=== PATIENT | male | born 1990 | race Caucasian/White ===

== ENCOUNTER 2023-08-03 08:42 | Emergency (ER) | payer MEDICAID, SELFPAY ==
[2023-08-03 09:16] LABS: Basophils % 0.3 %; Eosinophils % 0.5 %; Lymphocytes # 2.1 10^3/uL (0.8-4.8); Lymphocytes % 28.2 %; Mean Corpuscular HGB Conc 34.4 g/dL (30-55); Mean Corpuscular Hemoglobin 31.8 pg (27-33); Mean Corpuscular Volume 92.5 fl (82-101); Mean Platelet Volume 9.7 fL (7.4-10.4); Monocytes # 0.4 10^3/uL (0.2-0.9); Monocytes % 5.4 %; Neutrophils # 4.96 10^3/uL (1.8-7.7); Neutrophils % 65.3 %; Nucleated Red Blood Cells % 0 %; Platelet Count 290 10^3/cmm (157-399); Red Blood Count 4.65 10^6/uL (3.85-5.65); Red Cell Distribution Width 12.8 % (12.1-15.1); White Blood Count 7.59 10^3/uL (3.29-11.43)
[2023-08-03 09:18] VITALS: BP 127/72; PULSE 62; RESP 18; TEMP 36.7; O2SAT 99
[2023-08-03 09:29] LABS: Alanine Aminotransferase 13 U/L (0-41); Albumin Level 4.9 g/dL (3.5-5.2); Alkaline Phosphatase 63 U/L (40-130); Anion Gap 14.1 (5-19); Aspartate Amino Transferase 16 U/L (0-40); Blood Urea Nitrogen 14 mg/dL (6-20); Calcium 9.7 mg/dL (8.5-10.5); Carbon Dioxide 25 mmol/L (22-29); Chloride 103 mmol/L (98-107); Globulin 2.6 g/dL (1.3-4.6); Glucose 105 mg/dL (65-115); Osmolality Calculated 287 mOsm/kg (285-295); Potassium 4.1 mmol/L (3.5-5.1); Sodium 138 mmol/L (136-145); Total Bilirubin 0.5 mg/dL (0.15-1.2); Total Protein 7.5 g/dL (6.6-8.7)
--- NOTE | 2023-08-03 09:32 | CT_ITS ---
WS: [id number] CT ABDOMEN PELVIS TECHNIQUE: Contrast-enhanced CT of the abdomen and pelvis with coronal and sagittal reformatted image s. CLINICAL INFORMATION: bilateral flank pains COMPARISON: None. DLP: 334.[address] scans at [facility] use at least one of these dose optimization techniques: automated e xposure control; mA and/or kV adjustment per patient size (includes targeted exams where dose is matc hed to clinical indication); or iterative reconstruction. FINDINGS: Lung bases are well aerated. Normal liver. Normal portal vein and splenic vein. Normal spleen. Normal GE junction. Adrenal glands are normal. Normal renal parenchymal enhancement. No hydronephrosis. Pos toperative changes RIGHT kidney. Normal pancreas. Normal caliber abdominal aorta. Normal gallbladder. Enhancing prostate somewhat prominent for patient this age. Correlation PSA. Prostate measures 4.4 cm with calcification. Few sigmoid diverticuli. No evidence of acute diverticulitis. Constipation in th e RIGHT colon and transverse colon. Appendix appears normal. IMPRESSION: 1. No hydronephrosis in either kidney. Prominent LEFT greater than RIGHT extrarenal pelvis although the ureters are decompressed. No visualized obstructing calculi. 2. Prior postoperative changes RIGHT partial nephrectomy. 3. Enhancing prominent prostate for patient this age measuring 4.4 cm. Recommend correlation PSA. 4. A few sigmoid diverticuli. 5. Mild constipation in the RIGHT colon and transverse colon. Notified JUANCHO Hughes at 08/03/2023 10:44 AM.
--- NOTE | 2023-08-03 09:32 | ED_ITS ---
HPI - Back Pain/Injury 2 General: Chief Complaint: Back Pain/Injury Stated Complaint: Kidney pain, post cancer Time Seen by Provider: 08/03/23 08:55 Source: patient Mode of arrival: ambulatory Limitations: no limitations History of Present Illness: Patient is a 33-year-old male here for complaints of bilateral flank pains. Patient states approximately a year ago he had a partial right nephrectomy for renal cell carcinoma. Patient states since the surgery he has had intermittent flank pains but always felt like they were controllable and seemed to ease as long as he stayed hydrated and drink plenty of water. He states pains have progressively worsened over the past several months and this morning he woke up with unbearable pain. Patient admittedly has not had much follow-up following the surgery as he seemed to be overall displeased with the care he received. He does tell me at some point he had an ultrasound of his testicles which showed concern for malignant lesions but these have never been followed up with her biopsied. He does not complain of testicular pain currently. He is requesting urology follow-up as he is recently moved to the area. Patient states he is having difficulty with urination but that this is chronic and seems to come and go. MD elicited complaint: back pain Onset (ago): month(s) Timing: constant and progressively worsening Severity: severe Similar Symptoms Previously: Yes Location: left flank and right flank Radiation: none Relieving factors: other (usually drinking plenty of water) Associated symptoms: Reports nausea; Deny abdominal pain, chills, dysuria, fatigue, fever(s), hematuria, urinary urgency or vomiting Work related injury: No Review of Systems 2 Const: Denies: fever(s), chills, body aches, fatigue or malaise Card: Denies: chest pain Resp: Denies: dyspnea GI: Reports: nausea; Denies: abdominal pain, vomiting or diarrhea : Reports: flank pain, difficulty urinating and urinary hesitancy; Denies: dysuria, urinary frequency, urinary urgency, urinary dribbling or hematuria Musc: Reports: back pain; Denies: neck pain, extremity pain, extremity swelling, joint pain or joint swelling Skin/Breast: Denies: rash Neuro: Denies: headache(s), numbness in extremities, weakness in extremities, sensory changes or dizziness Physical Exam 2 Const: COMMON NORMALS: no acute distress, average body habitus, patient oriented x3, no limitations, healthy appearing, alert and well nourished G ENERAL APPEARANCE: cooperative ORIENTATION/CONSCIOUSNESS: Yes awake, Yes oriented to person, Yes oriented to place and Yes oriented to time HENMT: COMMON NORMALS: normocephalic and atraumatic HEAD & SCALP: normal to inspection, normocephalic and atraumatic Neck/C-Spine: COMMON NORMALS: full ROM, no lymphadenopathy, supple and no meningeal signs Chest: COMMONS NORMALS: normal inspection of the chest Resp: COMMON NORMALS: normal respiratory effort and clear to auscultation bilaterally AUSCULTATION: clear to auscultation bilaterally Cardio: COMMON NORMALS: regular rate and regular rhythm RATE: regular rate RHYTHM: regular rhythm GI: COMMON NORMALS: Normal to inspection, nondistended, normoactive bowel sounds present, Soft to palpation, non-tender, No hepatosplenomegaly present and no masses PALPATION: Yes Soft to palpation, No Tenderness to palpation present (GI), No Guarding due to palpation present (GI), No Rigid due to palpation and Yes No hepatosplenomegaly present : BLADDER/KIDNEY EXAM: Yes CVA tenderness bilateral Back/Pelvis: COMMON NORMALS: thoracic and lumbar spine normal to inspection GENERAL BACK: Yes CVA tenderness Extremity: GENERAL: Yes normal exam except as noted Neuro: ZONIA COMA SCALE: document GCS findings Zonia coma scale eye opening: Spontaneous [place] coma scale verbal response: Orientated [place] coma scale motor response: Obey commands Zonia coma scale total score: 15 COMMON NORMALS: patient oriented x3 SENSORIUM/ORIENTATION: Yes alert, Yes oriented to person, Yes oriented to place and Yes oriented to time MENINGEAL SIGNS: Y es no meningeal signs Skin: COMMON NORMALS: no rashes or lesions noted GENERAL SKIN EXAM: no rashes or lesions noted Course 2 Vital Signs: Vital signs: Vital Signs Temperature 98.1 F 08/03/23 09:18 Pulse Rate 64 08/03/23 10:55 Respiratory Rate 18 08/03/23 09:18 Blood Pressure 105/73 08/03/23 10:55 Pulse Oximetry 99 08/03/23 10:55 Oxygen Delivery Me thod Room Air 08/03/23 10:55 MDM - Back Pain/Injury Medical Decision Making Patient is a 33-year-old male who presents to ED today with complaint of bilateral flank pain. The pain, he states, has been present since his right partial nephrectomy although it does seem to be worsening. He states partial nephrectomy was for renal cell carcinoma. We do not have these records unfortunately. He was told at some point on a testicular ultrasound that he had nodules concerning for malignancy. He states he never followed up with these nor had them biopsied. He has no testicular complaints today. Patient's blood work is perfect. His UA is completely clear. CT scan does not show hydronephrosis in either kidney. No visualized calculi. It did comment on an enhanced prominent prostate especially given his age. Patient is not having any bladder outlet obstruction symptoms. He has no complaints consistent with prostatitis. Ultimately this patient needs urology follow-up given his history of renal cancer, enlarged prostate, and reported abnormal testicular ultrasound findings. There is nothing further that needs to be done from an emergency standpoint. Return to ED precautions given. Labs 08/03/23 09:07 08/03/23 09:07 Laboratory Results WBC 7.59 10^3/uL (3.29-11.43) 08/03/23 09:07 RBC 4.65 10^6/uL (3.85-5.65) 08/03/23 09:07 Hgb 14.80 g/dL (11.27-16.99) 08/03/23 09:07 Hct 43.0 % (37-53) 08/03/23 09:07 MCV 92.5 fl (82-101) 08/03/23 09:07 MCH 31.8 pg (27-33) 08/03/23 09:07 MCHC 34.4 g/dL (30-55) 08/03/23 09:07 RDW 12.8 % (12.1-15.1) 08/03/23 09:07 Plt Count 290 10^3/cmm (157-399) 08/03/23 09:07 MPV 9.7 fL (7.4-10.4) 08/03/23 09:07 Neut % (Auto) 65.3 % 08/03/23 09:07 Lymph % (Auto) 28.2 % 08/03/23 09:07 Barron % (Auto) 5.4 % 08/03/23 09:07 Eos % (Auto) 0.5 % 08/03/23 09:07 Baso % (Auto) 0.3 % 08/03/23 09:07 Neut # (Auto) 4.96 10^3/uL (1.8-7.7) 08/03/23 09:07 Lymph # (Auto) 2.1 10^3/uL (0.8-4.8) 08/03/23 09:07 Barron # (Auto) 0.4 10^3/uL (0.2-0.9) 08/03/23 09:07 Eos # (Auto) 0.0 10^3/uL (0.0-0.8) 08/03/23 09:07 Baso # (Auto) 0.0 10^3/uL (0.0-0.1) 08/03/23 09:07 Nucleated RBC % (auto) 0 % 08/03/23 09:07 Nucleated RBCs # 0.0 /100WBC 08/03/23 09:07 Sodium 138 mmol/L (136-145) 08/03/23 09:07 Potassium 4.1 mmol/L (3.5-5.1) 08/03/23 09:07 Chloride 103 mmol/L (98-107) 08/03/23 09:07 Carbon Dioxide 25 mmol/L (22-29) 08/03/23 09:07 Anion Gap 14.1 (5-19) 08/03/23 09:07 BUN 14 mg/dL (6-20) 08/03/23 09:07 Creatinine 0.8 mg/dL (0.7-1.2) 08/03/23 09:07 GFR Calculation 110.0 mL/min (90-130) 08/03/23 09:07 Glucose 105 mg/dL (65-115) 08/03/23 09:07 Calculated Osmolality 287 mOsm/kg (285-295) 08/03/23 09:07 Calcium 9.7 mg/dL (8.5-10.5) 08/03/23 09:07 Total Bilirubin 0.5 mg/dL (0.15-1.2) 08/03/23 09:07 AST 16 U/L (0-40) 08/03/23 09:07 ALT 13 U/L (0-41) 08/03/23 09:07 Alkaline Phosphatase 63 U/L (40-130) 08/03/23 09:07 Total Protein 7.5 g/dL (6.6-8.7) 08/03/23 09:07 Albumin 4.9 g/dL (3.5-5.2) 08/03/23 09:07 Globulin 2.6 g/dL (1.3-4.6) 08/03/23 09:07 Urine Color Yellow (Yellow) 08/03/23 10:08 Urine Appearance Clear (CLEAR) 08/03/23 10:08 Urine pH 5 (5-7) 08/03/23 10:08 Ur Specific Hale 1.015 (1.005-1.030) 08/03/23 10:08 Urine Protein Neg (Negative) 08/03/23 10:08 Urine Glucose (UA) Norm (Normal) 08/03/23 10:08 Urine Ketones Negative (Negative) 08/03/23 10:08 Urine Blood Neg (Negative) 08/03/23 10:08 Urine Nitrate Negative (Negative) 08/03/23 10:08 Urine Bilirubin Neg (Negative) 08/03/23 10:08 Urine Urobilinogen Neg mg/dL (Negative) 08/03/23 10:08 Ur Leukocyte Esterase Negative (Negative) 08/03/23 10:08 All radiology interpretation(s) finalized by discharge Discharge Plan Discharge Patient Disposition: Home Clinical Impression: Bilateral flank pain Condition: Stable Prescriptions: New acetaminophen-codeine 300-30 mg tablet 1 tab PO Q6H PRN (Reason: pain) Qty: 14 0RF Discharge Orders: Discharge ED (Routine); Ordered 08/03/23 Ordered By: Eugenie Rm Activity Restrictions/Additional Instructions: As we discussed I have placed a case management referral to get you set up with a urologist. I would like you to start taking [id number] analgesics such as Tylenol or Ibuprofen to see if this helps alleviate your pain. You can take the prescription pain medication for severe pain as needed. You need to return to the emergency department for worsening or uncontrollable pain, fevers, inability to urinate, or any other concerns you may have. 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
[2023-08-03 09:40] VITALS: BP 111/76; PULSE 64; O2SAT 98
[2023-08-03] MEDS: iohexol 350 mg/mL 500 mL Btl (per mL) IV (10:02)
[2023-08-03 10:19] LABS: Add Urine Microscopic? NO; Charge for UA Resulting for Rev
[2023-08-03 10:42] LABS: Bilirubin Urine Neg (Negative); Blood Urine Neg (Negative); Glucose Urine UA Norm (Normal); Ketones Urine Negative (Negative); Leukocyte Esterase Urine Negative (Negative); Nitrate Urine Negative (Negative); Protein Urine Neg (Negative); Specific Gravity, Urine 1.015 (1.005-1.030); Urine Appearance Clear (CLEAR); Urine Color Yellow (Yellow); Urobilinogen Urine Neg (Negative); pH Urine 5 (5-7)
[2023-08-03 10:55] VITALS: BP 105/73; PULSE 64; O2SAT 99
[2023-08-03] MEDS: ketorolac 30 mg/mL INJ IVP (11:36)
[2023-08-03 11:37] VITALS: BP 115/67; PULSE 56; O2SAT 99
[2023-08-03 12:08] VITALS: BP 99/70; PULSE 62; O2SAT 100
--- NOTE | 2023-08-03 12:15 | DCPLANNER ---
Sent referral to [facility] urology [facility] per patients request -
== END 2023-08-03 12:09 | disposition home or self-care (01) ==
PROVIDERS: Emergency Provider Physician Assistant
DX: R10.9 Unspecified abdominal pain (principal); Z90.5 Acquired absence of kidney; Z85.528 Personal history of other malignant neoplasm of kidney
CPT/HCPCS: 36415; 74177; 80053; 81003; 85025; 96374; 99285; J1885; Q9967

== ENCOUNTER 2023-11-18 10:42 | Emergency (ER) | payer OTHER, SELFPAY ==
[2023-11-18] VITALS (8 sets, daily range): BP systolic 102–113; BP diastolic 48–77; PULSE 51–71; RESP 16–18; TEMP 36.4; O2SAT 94–100; BMI 20.7
--- NOTE | 2023-11-18 10:46 | XRR_ITS ---
PROCEDURE INFORMATION: Exam: XR Chest Exam date and time: 11/18/2023 10:50 AM Age: 33 years old Clinical indication: Angina pectoris and chest pressure; Patient HX: Chest pains since 1300 07, radiates mostly to left side and causes pressure feeling, difficulty breathing. HX of renal cancer; Additional info: Cp TECHNIQUE: Imaging protocol: Radiologic exam of the chest. Views: 1 view. COMPARISON: CT abdomen pelvis w con* [id number] 08/03/2023 9:58 AM FINDINGS: Lungs: Unremarkable. No consolidation. Pleural spaces: Unremarkable. No pleural effusion. No pneumothorax. Heart/Mediastinum: Unremarkable. No cardiomegaly. Bones/joints: Unremarkable. XR/XR chest 1V portable [id number] IMPRESSION: No acute findings.
--- NOTE | 2023-11-18 10:46 | ECG_ITS ---
[facility] Test Date: 2023-11-18 Pat Name: Jamar Beth Department: Room: Gender: Male Speech Lang Path Therapist: : 1990 Requested By: Tristen Nowak Order Number: [id number] Moris MD: Jerrell Ozuna M.D. Measurements Intervals [place] Rate: 65 P: 78 IL: 169 QRS: 80 QRSD: 90 T: 64 QT: 370 QTc: 387 Interpretive Statements SINUS RHYTHM POSSIBLE LEFT ATRIAL ENLARGEMENT [-0.1mV P-WAVE IN V1/V2] POSSIBLE RIGHT VENTRICULAR CONDUCTION DELAY [RSR (QR) IN V1/V2] EARLY REPOLARIZATION [ST ELEVATION WITH NORMALLY INFLECTED T-WAVE] MODERATE ST DEPRESSION [0.05+ mV ST DEPRESSION] INTERPRETATION BASED ON A DEFAULT AGE OF 40 YEARS No previous ECG available for comparison Electronically Signed On 11-18-2023 17:13:44 CDT by Jerrell Ozuna M.D. [email or web address] ([employer])/store/[id number]
[2023-11-18 11:29] LABS: Basophils % 0.3 %; Eosinophils # 0.1 10^3/uL (0.0-0.8); Eosinophils % 0.6 %; Hematocrit 41.4 % (37-53); Lymphocytes # 2.2 10^3/uL (0.8-4.8); Lymphocytes % 21.6 %; Mean Corpuscular HGB Conc 34.5 g/dL (30-55); Mean Corpuscular Hemoglobin 32.5 pg (27-33); Mean Corpuscular Volume 94.1 fl (82-101); Mean Platelet Volume 9.6 fL (7.4-10.4); Monocytes # 0.6 10^3/uL (0.2-0.9); Monocytes % 6.3 %; Neutrophils # 7.11 10^3/uL (1.8-7.7); Nucleated Red Blood Cells % 0 %; Platelet Count 306 10^3/cmm (157-399); White Blood Count 10.01 10^3/uL (3.29-11.43)
[2023-11-18 11:43] LABS: D Dimer 0.41 ug/mLFEU (0-0.59)
[2023-11-18 11:44] LABS: Alanine Aminotransferase 15 U/L (0-41); Albumin Level 4.9 g/dL (3.5-5.2); Alkaline Phosphatase 76 U/L (40-130); Anion Gap 18.5 (5-19); Aspartate Amino Transferase 18 U/L (0-40); Blood Urea Nitrogen 25 mg/dL (6-20); Calcium 10.2 mg/dL (8.5-10.5); Carbon Dioxide 23 mmol/L (22-29); Chloride 104 mmol/L (98-107); Creatinine Clr Calc Pharmacy 123.6324; Globulin 2.3 g/dL (1.3-4.6); Glucose 99 mg/dL (65-115); Lipase 27 U/L (13-60); Osmolality Calculated 296 mOsm/kg (285-295); Potassium 4.5 mmol/L (3.5-5.1); Sodium 141 mmol/L (136-145); Total Bilirubin 0.4 mg/dL (0.15-1.2); Total Protein 7.2 g/dL (6.6-8.7)
[2023-11-18 11:47] LABS: Troponin(5th) Baseline < 6 ng/L (0-15)
[2023-11-18 13:03] LABS: Adenovirus Not Detected (NOT DETECT); Chlamydia Pneumoniae Not Detected (NOT DETECT); Coronavirus 229E,HKU1,NL63,OC4 Not Detected (NOT DETECT); Human Metapneumovirus Not Detected (NOT DETECT); Human Rhinovirus/Enterovirus Not Detected (NOT DETECT); Influenza A Not Detected (NOT DETECT); Influenza A H1 Not Detected (NOT DETECT); Influenza A H1-2009 Not Detected (NOT DETECT); Influenza A H3 Not Detected (NOT DETECT); Influenza B Not Detected (NOT DETECT); Mycoplasma Pneumoniae Not Detected (NOT DETECT); Parainfluenza Virus Type 1 Not Detected (NOT DETECT); Parainfluenza Virus Type 2 Not Detected (NOT DETECT); Parainfluenza Virus Type 3 Not Detected (NOT DETECT); Parainfluenza Virus Type 4 Not Detected (NOT DETECT); Respiratory Syncytial Virus A Not Detected (NOT DETECT); Respiratory Syncytial Virus B Not Detected (NOT DETECT); SARS-COV-2 Not Detected (NOT DETECT)
--- NOTE | 2023-11-18 13:12 | ECG_ITS ---
[facility] Test Date: 2023-11-18 Pat Name: Jamar Beth Department: Room: Gender: Male Client Success Specialist: : 1990 Requested By: Tristen Nowak Order Number: [id number] Moris MD: Jerrell Ozuna M.D. Measurements Intervals [place] Rate: 51 P: 83 VA: 197 QRS: 94 QRSD: 94 T: 70 QT: 418 QTc: 386 Interpretive Statements SINUS BRADYCARDIA BORDERLINE RIGHT AXIS DEVIATION [QRS AXIS > 90] POSSIBLE RIGHT VENTRICULAR CONDUCTION DELAY [RSR (QR) IN V1/V2] EARLY REPOLARIZATION [ST ELEVATION WITH NORMALLY INFLECTED T-WAVE] TALL T-WAVES Compared to ECG 11/18/2023 10:45:06 Sinus rhythm no longer present ST (T wave) deviation still present Electronically Signed On 11-18-2023 17:16:22 CDT by Jerrell Ozuna M.D. [email or web address]/store/OM/[id number]
[2023-11-18 13:43] LABS: Troponin 5 2HR 6.27 ng/L (0-15); Troponin 5 2HR Delta 0.27001 ABS# (0-10)
--- NOTE | 2023-11-18 13:47 | W.ED.SOB ---
HPI - SOB/Dyspnea General: Chief Complaint: Shortness of Breath/Dyspnea Stated Complaint: chest pain, short of breath Time Seen by Provider: 11/18/23 12:23 History of Present Illness: HPI Narrative: 33-year-old male presents emergency room planing of chest comfort and shortness of breath. He had a close contact who recently tested positive for COVID and was admitted to the hospital he had some loose stool slightly productive cough patient is a regular smoker no known history of asthma. He has not hypoxic time presentation he has albuterol has not been using regularly. No history of coronary artery disease no history of DVT or PE no history of any arrhythmias. Associated symptoms: Reports chest congestion and fever(s); Deny abdominal pain or chest pain Review of Systems Const: Reports: fever(s), chills, fatigue and malaise Card: Denies: chest pain Resp: Reports: dyspnea, productive cough, wheezing and chest congestion GI: Denies: abdominal pain : Denies: dysuria, urinary frequency or urinary urgency Musc: Denies: neck pain or back pain Skin/Breast: Denies: rash Physical Exam Const: GENERAL APPEARANCE: cooperative and comfortable ORIENTATION/CONSCIOUSNESS: Yes awake, Yes oriented to person, Yes oriented to place and Yes oriented to time HENMT: COMMON NORMALS: normocephalic, atraumatic and hearing grossly normal bilaterally HEAD & SCALP: normocephalic and atraumatic Resp: COMMON NORMALS: normal respiratory effort, No retractions and No use of accessory muscles AUSCULTATION: wheezes Cardio: COMMON NORMALS: regular rate, regular rhythm and No murmurs present (Cardio) RATE: regular rate RHYTHM: regular rhythm GI: COMMON NORMALS: Soft to palpation and No hepatosplenomegaly present AUSCULTATION: Yes normoactive bowel sounds PALPATION: Yes Soft to palpation, No Tenderness to palpation present (GI), No Guarding due to palpation present (GI) and Yes No hepatosplenomegaly present Extremity: COMMON NORMALS: normal to inspection, capillary refill normal, no clubbing, cyanosis or edema, no calf tenderness and no pedal edema Neuro: SENSORIUM/ORIENTATION: Yes oriented to person, Yes oriented to place and Yes oriented to time Skin: COMMON NORMALS: no rashes or lesions noted GENERAL SKIN EXAM: no rashes or lesions noted Course Vital Signs: Vital signs: Vital Signs Temperature 97.6 F 11/18/23 10:51 Pulse Rate 68 11/18/23 14:05 Respiratory Rate 16 11/18/23 13:58 Blood Pressure 113/56 11/18/23 14:05 Pulse Oximetry 100 11/18/23 14:05 Oxygen Delivery Me thod Room Air 11/18/23 13:58 MDM - SOB/Dyspnea Medical Decision Making Respiratory panel negative chest x-ray unremarkable did improve with steroids and nebulizers discharged home on albuterol to use regularly steroid taper doxycycline 100 twice daily for 10 days encourage smoking cessation follow-up with primary care if not improving Medical Records I reviewed the patient's medical records. Lab Data I reviewed the patient's lab results. 11/18/23 11:11 11/18/23 11:11 Labs/Radiology: Radiology Impressions Chest X-Ray 11/18/23 10:46 IMPRESSION: No acute findings. Laboratory Results WBC 10.01 10^3/uL (3.29-11.43) 11/18/23 11:11 RBC 4.40 10^6/uL (3.85-5.65) 11/18/23 11:11 Hgb 14.30 g/dL (11.27-16.99) 11/18/23 11:11 Hct 41.4 % (37-53) 11/18/23 11:11 MCV 94.1 fl (82-101) 11/18/23 11:11 MCH 32.5 pg (27-33) 11/18/23 11:11 MCHC 34.5 g/dL (30-55) 11/18/23 11:11 RDW 13.0 % (12.1-15.1) 11/18/23 11:11 Plt Count 306 10^3/cmm (157-399) 11/18/23 11:11 MPV 9.6 fL (7.4-10.4) 11/18/23 11:11 Neut % (Auto) 71.0 % 11/18/23 11:11 Lymph % (Auto) 21.6 % 11/18/23 11:11 Cowley % (Auto) 6.3 % 11/18/23 11:11 Eos % (Auto) 0.6 % 11/18/23 11:11 Baso % (Auto) 0.3 % 11/18/23 11:11 Neut # (Auto) 7.11 10^3/uL (1.8-7.7) 11/18/23 11:11 Lymph # (Auto) 2.2 10^3/uL (0.8-4.8) 11/18/23 11:11 Cowley # (Auto) 0.6 10^3/uL (0.2-0.9) 11/18/23 11:11 Eos # (Auto) 0.1 10^3/uL (0.0-0.8) 11/18/23 11:11 Baso # (Auto) 0.0 10^3/uL (0.0-0.1) 11/18/23 11:11 Nucleated RBC % (auto) 0 % 11/18/23 11:11 Nucleated RBCs # 0.0 /100WBC 11/18/23 11:11 D-Dimer 0.41 ug/mLFEU (0-0.59) 11/18/23 11:11 Sodium 141 mmol/L (136-145) 11/18/23 11:11 Potassium 4.5 mmol/L (3.5-5.1) 11/18/23 11:11 Chloride 104 mmol/L (98-107) 11/18/23 11:11 Carbon Dioxide 23 mmol/L (22-29) 11/18/23 11:11 Anion Gap 18.5 (5-19) 11/18/23 11:11 BUN 25 mg/dL (6-20) H 11/18/23 11:11 Creatinine 0.8 mg/dL (0.7-1.2) 11/18/23 11:11 GFR Calculation 110.0 mL/min (90-130) 11/18/23 11:11 Glucose 99 mg/dL (65-115) 11/18/23 11:11 Calculated Osmolality 296 mOsm/kg (285-295) H 11/18/23 11:11 Calcium 10.2 mg/dL (8.5-10.5) 11/18/23 11:11 Total Bilirubin 0.4 mg/dL (0.15-1.2) 11/18/23 11:11 AST 18 U/L (0-40) 11/18/23 11:11 ALT 15 U/L (0-41) 11/18/23 11:11 Alkaline Phosphatase 76 U/L (40-130) 11/18/23 11:11 Troponin T Baseline < 6 ng/L (0-15) 11/18/23 11:11 Troponin T 120 Minute 6.27 ng/L (0-15) 11/18/23 13:18 Delta Troponin T 0.25719 ABS# (0-10) 11/18/23 13:18 Total Protein 7.2 g/dL (6.6-8.7) 11/18/23 11:11 Albumin 4.9 g/dL (3.5-5.2) 11/18/23 11:11 Globulin 2.3 g/dL (1.3-4.6) 11/18/23 11:11 Lipase 27 U/L (13-60) 11/18/23 11:11 Adenovirus (PCR) Not detected (NOT DETECT) 11/18/23 11:00 C. pneumoniae DNA (PCR) Not detected (NOT DETECT) 11/18/23 11:00 Coronavirus 229E (PCR) Not detected (NOT DETECT) 11/18/23 11:00 Human Metapneumovir PCR Not detected (NOT DETECT) 11/18/23 11:00 Influenza A (H1) PCR Not detected (NOT DETECT) 11/18/23 11:00 Influ A (H1/09) PCR Not detected (NOT DETECT) 11/18/23 11:00 Influenza A (H3) PCR Not detected (NOT DETECT) 11/18/23 11:00 Influenza Type A (PCR) Not detected (NOT DETECT) 11/18/23 11:00 Influenza Type B (PCR) Not detected (NOT DETECT) 11/18/23 11:00 M. pneumoniae (PCR) Not detected (NOT DETECT) 11/18/23 11:00 Parainfluenza 1 (PCR) Not detected (NOT DETECT) 11/18/23 11:00 Parainfluenza 2 (PCR) Not detected (NOT DETECT) 11/18/23 11:00 Parainfluenza 3 (PCR) Not detected (NOT DETECT) 11/18/23 11:00 Parainfluenza 4 (PCR) Not detected (NOT DETECT) 11/18/23 11:00 RSV Type A (PCR) Not detected (NOT DETECT) 11/18/23 11:00 RSV Type B (PCR) Not detected (NOT DETECT) 11/18/23 11:00 Entero/Rhino (PCR) Not detected (NOT DETECT) 11/18/23 11:00 SARS-CoV-2 (PCR) Not detected (NOT DETECT) 11/18/23 11:00 SARS-CoV-2 Ag (Rapid) Cancelled 11/18/23 13:51 All radiology interpretation(s) finalized by discharge Discharge Plan Discharge Patient Disposition: Home Clinical Impression: Bronchitis Condition: Stable Prescriptions: New doxycycline hyclate 100 mg capsule 100 mg PO BID 10 Days Qty: 20 0RF Medrol (Gerson) 4 mg tablets,dose pack See Rx Instructions .ROUTE .COMPLEX Qty: 21 0RF Rx Instructions: orally per package directions albuterol sulfate 90 mcg/actuation HFA aerosol inhaler 2 inh INHALATION Q4H PRN (Reason: shortness of breath or wheezing) Qty: 18 0RF Discharge Orders: Discharge ED (Routine); Ordered 11/18/23 Ordered By: Ehsan Cardenas Discharge Diet: Usual diet Discharge Activity: Increase activity as tolerated Patient Instructions: Opioid Safety, Pain Management Activity Restrictions/Additional Instructions: Thank you for choosing [facility] for your healthcare needs today. It is very important that you follow up as instructed or that you return to the Emergency Department should you have concerns or if your condition changes or worsens in any way. You were seen in the emergency room with complaints of cough and shortness of breath. COVID and other respiratory panels that were tested were negative. Chest x-ray did not show acute pneumonia or any other abnormality heart enzymes and EKG were normal as well. Will discharge you home with a steroid taper use albuterol as needed also use doxycycline 1 twice a day for 10 days recheck with primary care doctor if not improving Print Language: Citizen Of [place] Coding Level of Care Code ED Composition Tile Layer for Stanford Cardona
[2023-11-18] MEDS: dexamethasone 10 mg/mL INJ IM (13:52)
[2023-11-18] MEDS: ipratropium-albuterol 3 mL Neb INHALATION (13:57)
== END 2023-11-18 14:15 | disposition home or self-care (01) ==
PROVIDERS: Emergency Medicine; Emergency Provider Family Medicine
DX: J40 Bronchitis, not specified as acute or chronic (principal); Z11.52 Encounter for screening for COVID-19
CPT/HCPCS: 36415; 71045; 80053; 83690; 84484; 85025; 85378; 87486; 87581; 87633; 93005; 94640; 96372; 99285; J1100